=== PATIENT | male | born 1980 ===

== ENCOUNTER 2021-04-25 21:31 | Emergency (ER) | payer SELFPAY ==
[2021-04-25] MEDS ORDERED: ALPRAZolam 0.5 MG Tab PO ONE (21:44)
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
== END 2021-04-25 22:30 | disposition home or self-care (01) ==
LOC: MW.ED 21:31
DX: F41.9 Anxiety disorder, unspecified (principal); Z72.0 Tobacco use
CPT/HCPCS: 99283; A9270